=== PATIENT | female | born 1990 | race Hispanic/Latino ===

== ENCOUNTER 2020-11-18 15:20 | Outpatient (CLI) | payer OTHER | END 2020-11-18 15:21 | disposition home or self-care (01) | LOC: CSHULT 15:20 | PROVIDERS: ATTEND Nurse Practitioner Adult Health | DX: R10.2 Pelvic and perineal pain (principal) | CPT/HCPCS: 76856 ==

== ENCOUNTER 2023-07-04 09:28 | Outpatient (CLI) | payer OTHER | END 2023-07-04 09:29 | disposition home or self-care (01) | LOC: CSHULT 09:28 | PROVIDERS: ATTEND Nurse Practitioner Family | DX: N93.9 Abnormal uterine and vaginal bleeding, unspecified (principal); E07.9 Disorder of thyroid, unspecified; R93.89 Abnormal findings on diagnostic imaging of other specified body structures | CPT/HCPCS: 76536; 76856; 76857 ==

== ENCOUNTER 2023-12-14 11:23 | Outpatient (CLI) | payer OTHER | END 2023-12-14 11:24 | disposition home or self-care (01) | LOC: CSHULT 11:23 | PROVIDERS: ATTEND Student in an Organized Health Care Education/Training Program | DX: E04.1 Nontoxic single thyroid nodule (principal) | CPT/HCPCS: 76536 ==